=== PATIENT | female | born 1975 | race Caucasian/White ===

== ENCOUNTER 2018-03-14 09:03 | Emergency (ER) | payer OTHER ==
[~2018-03-14] VITALS: Ht 177.8 cm; Wt 94.3 kg
[~2018-03-14 09:03] MED LIST: NOHOMEMEDICATIONS; PHENERGAN 25 MG25 M1 PO
[2018-03-14 09:48] LABS: ABSOLUTE EOSINOPHILS 0.1 thou/uL (0.0-0.7); ABSOLUTE LYMPHOCYTES 1.6 thou/uL (0.8-5.3); ABSOLUTE MONOCYTES 0.3 thou/uL (0.0-1.2); ABSOLUTE NEUTROPHILS 4.2 thou/uL (1.6-8.1); BASOPHILS 0.7 %; EOSINOPHILS 1.6 %; HEMATOCRIT 38.3 % (37.0-47.0); HEMOGLOBIN 13.1 gm/dL (12.0-15.0); LYMPHOCYTES 25.9 %; MCH 30.8 pg (26.0-34.0); MCHC 34.2 g/dL (28.0-37.0); MONOCYTES 5.1 %; MPV 8.5 fl. (7.2-11.1); NUCLEATED RBCS 0 /100WBC; PLATELET COUNT* 196 thou/uL (150-400); POLYS 66.7 %; RBC 4.26 mil/uL (4.20-5.00); RDW-CV 12.8 % (10.5-14.5); WBC 6.4 thou/uL (4.0-11.0)
[2018-03-14 10:01] LABS: CALCIUM 8.5 mg/dL (8.5-10.1); CREATININE 0.8 mg/dL (0.6-1.3); POTASSIUM 3.6 mmol/L (3.5-5.1)
[2018-03-14 10:03] LABS: APTT 26.8 Seconds (25.0-31.3)
[2018-03-14 10:06] LABS: ALBUMIN 3.1 g/dL (3.4-5.0); TOTAL BILIRUBIN 0.4 mg/dL (<0.1-1.0); TOTAL PROTEIN 6.9 g/dL (6.4-8.2)
[2018-03-14 10:24] VITALS: BP 146/74
== END 2018-03-14 10:24 | disposition home or self-care (01) ==
LOC: M.ERS 09:03
PROVIDERS: Family Medicine
DX: R21 Rash and other nonspecific skin eruption (principal)